=== PATIENT | male | born 1985 | race Caucasian/White ===

== ENCOUNTER 2019-03-17 11:30 | Outpatient (CLI) | payer MEDICAID ==
[~2019-03-17 11:30] MED LIST: BUPR1FIL3 SL; CIPR-230 PO; IBUP-1984 PO; VAL5T PO
--- NOTE | 2019-03-17 12:00 | NUR ---
Patient ambulated independently from [facility] and was admitted to outpatient wound care for physician visit with Delroy Ball MD. Wound assessed by RN. New patient assessment completed with review of patient's medical history and current medications. 1145 - Dr. Ball at bedside accompanied by RN. Wound assessed by MD. Plan of care discussed with patient. No dressing ordered or placed. MD discussed home care instructions and next appointment with patient. Patient instructed on the signs and symptoms of infection and to call the Wound Center if any occur or to go to the ED if we are closed: Increased pain in wound Increase in drainage from the wound Redness in the skin surrounding the wound Bleeding from the wound Temperature of 101 or greater Patient instructed that the weight of their body puts a large amount of pressure on their wounds. This pressure keeps the new tissue from growing and inhibits new blood vessels from forming. Explained that, if they continue to bear weight on a body part that has a wound, the time it takes to heal the wound increases, the wound may get worse or the wound may not heal at all. Patient verbalized understanding of all discharge instructions and plan of care and ambulated independently out to [facility] in stable condition with no sign or symptom of distress at time of discharge.
== END 2019-03-17 12:04 | disposition home or self-care (01) ==
LOC: EDSTATUS 11:30 → WOUND CARE 11:30
PROVIDERS: ATTEND Surgery
DX: T81.89XA Other complications of procedures, not elsewhere classified, initial encounter (principal); L98.492 Non-pressure chronic ulcer of skin of other sites with fat layer exposed; L05.91 Pilonidal cyst without abscess; F41.9 Anxiety disorder, unspecified; F17.210 Nicotine dependence, cigarettes, uncomplicated; Z79.899 Other long term (current) drug therapy; Y83.8 Other surgical procedures as the cause of abnormal reaction of the patient, or of later complication, without mention of misadventure at the time of the procedure
CPT/HCPCS: G0463

== ENCOUNTER 2019-03-20 11:30 | Outpatient (CLI) | payer MEDICAID ==
--- NOTE | 2019-03-20 12:31 | NUR ---
Patient ambulated independently from [facility] and was admitted to outpatient wound care for physician visit with Delroy Ball MD. Dressing removed, wound cleansed and lidocaine applied per order. Patient assessed for changes in conditions, medications and medical history. Dr. Ball at bedside accompanied by RN. Wound assessed and no debridement was done. Sutures removed and patient diagnosed as healed. No dressings ordered. Plan of care discussed with patient. Patient instructed on the signs and symptoms of infection and to call the Wound Center if any occur or to go to the ED if we are closed: Increased pain in wound Increase in drainage from the wound Redness in the skin surrounding the wound Bleeding from the wound Temperature of 101 or greater Patient instructed that the weight of their body puts a large amount of pressure on their wounds. This pressure keeps the new tissue from growing and inhibits new blood vessels from forming. Explained that, if they continue to bear weight on a body part that has a wound, the time it takes to heal the wound increases, the wound may get worse or the wound may not heal at all. Patient verbalized understanding of all discharge instructions and plan of care and ambulated independently out to [facility] in stable condition with no sign or symptom of distress at time of discharge. Addendum: 03/20/19 at 1233 by Yaquelin Madrid RN Amended: Links added.
== END 2019-03-20 12:15 | disposition home or self-care (01) ==
LOC: EDSTATUS 11:30 → WOUND CARE 11:30
PROVIDERS: ATTEND Surgery
DX: T81.89XD Other complications of procedures, not elsewhere classified, subsequent encounter (principal); L98.492 Non-pressure chronic ulcer of skin of other sites with fat layer exposed; L05.91 Pilonidal cyst without abscess; F41.9 Anxiety disorder, unspecified; F17.210 Nicotine dependence, cigarettes, uncomplicated; Z79.899 Other long term (current) drug therapy; Y83.8 Other surgical procedures as the cause of abnormal reaction of the patient, or of later complication, without mention of misadventure at the time of the procedure
CPT/HCPCS: G0463